=== PATIENT | male | born 1950 | race Caucasian/White ===

== ENCOUNTER 2022-12-05 10:50 | Inpatient (IN) ==
--- NOTE | 2022-11-17 11:47 | PAT Medication Instructions ---
Medication Instructions Date of Service November 17, 2022 Home Medications aspirin 81 mg capsule 81 mg PO QAM atorvastatin 20 mg tablet 20 mg PO HS gabapentin 300 mg capsule 300 mg PO TID lisinopril 20 mg tablet 20 mg PO QAM meloxicam 7.5 mg tablet 7.5 mg PO BID multivitamin 1 tab PO QAM pantoprazole 40 mg tablet,delayed release 40 mg PO QAM psyllium husk 0.52 gram capsule 0.52 g PO QAM ASK your surgeon for instructions meloxicam 7.5 mg tablet 7.5 mg PO BID DO NOT take the morning of surgery lisinopril 20 mg tablet 20 mg PO QAM multivitamin 1 tab PO QAM psyllium husk 0.52 gram capsule 0.52 g PO QAM Take morning of surgery With a small sip of water, OTHERWISE NOTHING TO EAT OR DRINK AFTER MIDNIGHT: aspirin 81 mg capsule 81 mg PO QAM (unless surgeon directed otherwise) gabapentin 300 mg capsule 300 mg PO TID pantoprazole 40 mg tablet,delayed release 40 mg PO QAM Take evening before surgery atorvastatin 20 mg tablet 20 mg PO HS gabapentin 300 mg capsule 300 mg PO TID Other Notes If you have any questions please call us at [phone] or [phone] or [phone] or [phone]
--- NOTE | 2022-11-21 13:33 | Anesthesiology Consultation ---
Date of Service November 21, 2022 Assessment & Plan (1) Encounter for pre-operative examination: - 11/24/22 [facility] PCP pre-op evaluation. Chart Review Chart Review: Pending: Refer to Additional Notes / Consult section and Patient seen in Pre Admission Testing Teaching & Discussion Pre-Anesthesia Teaching/Discussion Notes: Instructed NPO after midnight before surgery, except medications with 15 cc of water. Medication instructions provided according to the PAT guidelines. History Surgery Operation Date: 12/05/22 10:05 Proposed Procedures p L3-L5 Decompression and Fusion, Spinal Cord Monitoring - Linden Morales DO Height/Weight Height: 6 ft Weight: 133.4 kg Allergies Allergy/AdvReac Type Severity Reaction Status Date / Time shellfish derived Allergy Severe Anaphylaxis Verified 11/14/22 11:41 Medications Home Medications Medication Instructions Recorded Confirmed Last Taken aspirin 81 mg capsule 81 mg PO QAM 11/14/22 11/14/22 Unknown atorvastatin 20 mg tablet 20 mg PO HS 11/14/22 11/14/22 Unknown gabapentin 300 mg capsule 300 mg PO TID 11/14/22 11/14/22 Unknown lisinopril 20 mg tablet 20 mg PO QAM 11/14/22 11/14/22 Unknown meloxicam 7.5 mg tablet 7.5 mg PO BID 11/14/22 11/14/22 Unknown multivitamin 1 tab PO QAM 11/14/22 11/14/22 Unknown pantoprazole 40 mg tablet,delayed 40 mg PO QAM 11/14/22 11/14/22 Unknown release psyllium husk 0.52 gram capsule 0.52 g PO QAM 11/14/22 11/14/22 Unknown Additional Notes: Pt was instructed to check with prescriber and surgeon if aspirin is to be continued or held if both providers are in agreement. This was corrected on provided medication instructions. Patient verbalized full understanding and agreement, denied questions or concerns. Past Medical History Medical History (Updated 11/21/22 @ 13:55 by Fern Powell PA-C) Asthma childhood, controlled and stable per pt CLL (chronic lymphocytic leukemia) annual monitoring per [facility] heme/onc GERD (gastroesophageal reflux disease) controlled, stable per pt History of colon cancer 2013-s/p bowel resection and "light" chemo HTN (hypertension) controlled, stable per pt; white coat HTN Hyperlipidemia Slow to wake up after anesthesia denies extended intubation or re-intubation Patient denies h/o stroke, seizures, heart attack, heart failure, DM, blood clots or blood transfusions. Exercise / Class Metabolic Activity II 4-5 Yardwork/Stairs/Walk up hill (denies chest discomfort or shortness of breath with 1 FOS) Past Family History Family History Other No family history of adverse response to anesthesia Past Surgical History Surgical History (Updated 11/21/22 @ 13:29 by Fern Powell PA-C) History of bilateral knee replacement History of bowel resection History of esophagogastroduodenoscopy (EGD) History of mandibular surgery jaw fracture, from traumatic injury-extensive wiring per pt, 1980s Hx of colonoscopy Past Anesthesia History Difficult Airway (jaw trauma/surgery with hardware in place, good jaw opening) and Other (slow to wake, denies extended unanticipated intubation or re- intubation; mother slow to wake) History of PONV No Hx of PONV and No Hx of Motion Sickness Social History Smoking Status: Former smoker tobacco type: cigarettes Smoking cigarettes per day: ~quit 40 yrs ago Do You Dip or Chew Tobacco: No Hx Alcohol Use: No Hx Substance Use: No substance use type: does not use Review of Systems Snoring, denies witnessed apneas. Patient denies chest pain, shortness of breath, dyspnea on exertion, fever, chills, cough, wheezing, or palpitations. Physical Exam Vital Signs Vitals BP 147/97 P 71 TEMP 97.9 SP02 95% on RA RESP 17 Physical Patient resting comfortably in chair in NAD, alert and oriented, responding appropriately throughout visit Full cervical extension range of motion without pain TMD 3.5 finger breadths Mallampati Score 2 Dentition: full upper plate and partial lower plate, both removable; denies chipped or loose teeth, caps/crowns, implants or bridges Lungs: normal respiratory effort. Good air movement, clear throughout to auscultation, no adventitious breath sounds Cardiac: regular rate and rhythm, no murmurs noted Carotid arteries: negative bruit bilat Lab Results Anesthesia Preop Results Results Anesthesia Widget: WBC 7.27 K/ul (4.8-10.8) 11/21/22 Hgb 14.5 g/dl (14.0-18.0) 11/21/22 Hct 41.1 % (42.0-52.0) L 11/21/22 Plt 200 K/uL (130-400) 11/21/22 Na 137 mmol/L (136-145) 11/21/22 K 4.6 mmol/L (3.5-5.1) 11/21/22 Cl 107 mmol/L (98-107) 11/21/22 CO2 26 mmol/L (21-32) 11/21/22 BUN 16 mg/dl (6-23) 11/21/22 Creat 1.17 mg/dl (0.6-1.4) 11/21/22 Glucose Level 90 mg/dl (70-99(Fasting)) 11/21/22 PT 11.1 Seconds (9.0-12.0) 11/21/22 PTT 27.8 Seconds (21.0-31.0) 11/21/22 INR 1.0 (0.9-1.1) 11/21/22 Urine Color Yellow 11/21/22 Urine Appearance Clear (Clear) 11/21/22 Urine pH 6.5 (4.5-7.5) 11/21/22 Urine Specific [place] 1.009 (1.000-1.030) 11/21/22 Urine Protein Negative (Negative) 11/21/22 Urine Glucose (UA) Negative (Negative) 11/21/22 Urine Ketones Negative (Negative) 11/21/22 Urine Blood Negative (Negative) 11/21/22 Urine Nitrite Negative (Negative) 11/21/22 Urine Bilirubin Negative (Negative) 11/21/22 Urine Urobilinogen Negative (Negative) 11/21/22 Urine Leukocyte Esterase Negative (Negative) 11/21/22 Blood Type O Positive 11/21/22 Antibody Screen NEGATIVE 11/21/22 Testing Electrocardiogram Date: 11/21/22 NSR, rate 68 bpm Chest X-Ray Date: 11/21/22 Mild cardiomegaly with no active disease in the chest.
[~2022-12-05 10:50] MED LIST: ACETAMINOPHEN 500 MG TAB PO SCH; CeleBREX 200 MG CAP PO SCH; GABAPENTIN 300 MG CAP PO SCH; LR 500ML BOLUS, THEN 15ML/HR IV SCH; LR 60ML/HR IV SCH
--- NOTE | 2022-12-05 12:07 | History & Physical Bridge Note ---
Date of Service December 05, 2022 History & Physical Bridge Note I have examined the patient, reviewed the History & Physical and in the interval since the performance of the History & Physical I have noted the following changes of clinical significance: no changes noted
--- NOTE | 2022-12-05 12:08 | History & Physical Report ---
Date of Service December 05, 2022 Assessment & Plan (1) Neurogenic claudication due to lumbar spinal stenosis: Plan: L3 L5 decompression and fusion History of Present Illness Chief Complaint: Back and leg pain Primary Care Provider: Kwasi Jones PA-C This is a 72-year-old male who presents with chronic persistent back and leg pain after failing course of nonoperative care is here for surgical invention. Allergies Allergy/AdvReac Type Severity Reaction Status Date / Time shellfish derived Allergy Severe Anaphylaxis Verified 12/05/22 11:37 Home Medications Medication Instructions Recorded Confirmed Type aspirin 81 mg capsule 81 mg PO QAM 11/14/22 12/05/22 History atorvastatin 20 mg tablet 20 mg PO DAILY 11/14/22 12/05/22 History gabapentin 300 mg capsule 300 mg PO TID 11/14/22 12/05/22 History lisinopril 20 mg tablet 20 mg PO QAM 11/14/22 12/05/22 History meloxicam 7.5 mg tablet 7.5 mg PO BID 11/14/22 12/05/22 History multivitamin 1 tab PO QAM 11/14/22 12/05/22 History pantoprazole 40 mg tablet,delayed 40 mg PO QAM 11/14/22 12/05/22 History release psyllium husk 0.52 gram capsule 0.52 g PO QAM 11/14/22 12/05/22 History Past Med/Surg History Medical History (Updated 12/05/22 @ 12:08 by Linden Morales DO) Asthma childhood, controlled and stable per pt CLL (chronic lymphocytic leukemia) annual monitoring per [facility] heme/onc GERD (gastroesophageal reflux disease) controlled, stable per pt History of colon cancer 2014-s/p bowel resection and "light" chemo HTN (hypertension) controlled, stable per pt; white coat HTN Hyperlipidemia Slow to wake up after anesthesia denies extended intubation or re-intubation Surgical History History of bilateral knee replacement History of bowel resection History of esophagogastroduodenoscopy (EGD) History of mandibular surgery jaw fracture, from traumatic injury-extensive wiring per pt, 1980s Hx of colonoscopy Family History Other No family history of adverse response to anesthesia Social History Smoking Status: Former smoker Cigarettes Per Day: ~quit 40 yrs ago; Second Hand Exposure: No; Do You Dip or Chew Tobacco: No; Tobacco Cessation Education Requested by Patient: No Hx Alcohol Use: No Hx Substance Use: No Preferred Language: [place] Citizen Communication Ability: Effective Teaching Supervisor Required: No Beliefs That Will Affect Care: None Current Living Situation: Spouse Other Information That Helps Us Care for You: No Feels Safe at Home: Yes Safety Concerns: Feels Safe At This Time Assistive Devices: Denture - Upper, Denture - Lower and Glasses Physical Exam Physical Exam: Patient is alert and oriented Heart regular rhythm Lungs clear Results & Data Results & Data Vital Signs (Past 12 Hours) Vital Signs Temp Pulse Resp BP Pulse Ox O2 Del Method 12/05/22 11:41 36.9 C 94 H 20 158/88 H 95 Room Air
[2022-12-05] MEDS ORDERED: ePHEDrine sulfate 50 MG/ML AMP IV PRN (13:11)
[2022-12-05] MEDS ORDERED: ONDANSETRON INJ 2 MG/ML 2 ML VIAL IV PRN ×2 (13:11→17:52)
[2022-12-05] MEDS ORDERED: ATROPINE SULFATE 0.1 MG/ML 10ML SYR IV PRN (13:11)
[2022-12-05] MEDS ORDERED: fentaNYL citrate PF 100 MCG/2 ML VIAL ONE (13:47)
[2022-12-05] MEDS ORDERED: KETAMINE 50 MG/5 ML SYRINGE ONE (13:49)
[2022-12-05] MEDS ORDERED: ceFAZolin 330 MG/ML 1 GM VIAL ONE (13:51)
[2022-12-05] MEDS ORDERED: BUPIVACAINE/EPINEPHRINE 0.25% 1:200,000 30 ML VIAL ONE (13:51)
[2022-12-05] MEDS ORDERED: HYDROmorphone INJ 2 MG/ML SYR/VIAL ONE (14:40)
[2022-12-05] MEDS ORDERED: ROCURONIUM BROMIDE 10 MG/ML 5 ML VIAL IV ONE (14:51)
[2022-12-05] MEDS ORDERED: ONDANSETRON INJ 2 MG/ML 2 ML VIAL ONE (14:51)
[2022-12-05] MEDS ORDERED: LARYING-O-JET KIT (LTA) ONE (14:51)
[2022-12-05] MEDS ORDERED: PHENYLEPHRINE 100MCG/ML 5ML SYR ONE (14:51)
[2022-12-05] MEDS ORDERED: ePHEDrine sulfate 50 MG/ML SYR ONE (14:51)
[2022-12-05] MEDS ORDERED: LIDOCAINE 2% 2 ML VIAL/AMP(20MG/ML) INFIL ONE (14:51)
[2022-12-05] MEDS ORDERED: PROPOFOL IV EMULSION 10 MG/ML 20 ML VIAL IV ONE (14:51)
[2022-12-05] MEDS ORDERED: DEXAMETHASONE SOD INJ 4 MG/ML VIAL ONE (14:51)
[2022-12-05] MEDS ORDERED: FLOSEAL HEMOSTATIC MATRIX 10ML TOP ONE (15:10)
[2022-12-05] MEDS ORDERED: SUGAMMADEX SODIUM 200 MG/2 ML VIAL IV ONE (15:57)
--- NOTE | 2022-12-05 16:05 | Operative Report ---
Post Operative Report Pre & Post Diagnosis Operation Date: 12/05/22 12:35 Pre-Op Diagnosis: Spinal Stenosis, Lumbar Region with Neurogenic Cla Morbid obesity Post-Op Diagnosis: Same I identified the patient and participated in the time-out.: Yes Procedure Operation Date: 12/05/22 12:35 Actual Procedures #1 lumbar decompression bilateral meniscectomies and foraminotomies L2-L3 L3-L4. #2 posterior spinal fusion L3-L4. #3 please posterior instrumentation L3-L4. #4 interbody fusion L3-L4. #5 please just prior 12 x 26 mm at L3-L4. #6 placement likely harvested most as autograft posterior gutters. #7 placement in physical dysfunctional mass graft to posterior gutters and I factor in the body space. Surgeon Linden Morales, DO Fat Purification Worker Dedrick Garcia Estimated Blood Loss 400 Findings See Below The patient is 6 feet tall weighing over 133 kg with BMI of 40. The patient's body habitus did contribute to significant technical difficulty requiring her to place retractors longer instruments in order to perform this procedure. This at least 50% increased operative time. Specimens none Indications This is a 72-year-old male who presents above-mentioned diagnosis and failed course of nonoperative care is here for surgical invention. Description of Procedure Patient admitted with identified informed consent obtained. Patient was then taken operative suite underwent ablation placed in a prone position on the Kyle table topicals and vein. A bony prominences well-padded I suspected to internal/external possibly spinal. The spine #is prepped draped in a sterile fashion. Sharp dissection with the assistance of Bovie cautery form down to exposing the lamina and transverse processes of L3-L4. We will call a cephalad fashion complete laminectomy of L3 partially met 2 was performed including bilateral medial facetectomies and foraminotomies addressing severe spinal stenosis. Pedicle screws were then placed in L3 and L4 bilaterally with assistance of fluoroscopy and appropriate size jana placed. Bilateral transforaminal approach on the left leg discectomy L3-L4 was performed endplates guarded to subcortical bleeding bone and a 12 x 26 mm prior cage with I factor X position. The rods and locked in final position bilaterally. The transverse processes of L3-L4 burred to support over the bone. Infuse collagen sponge combined with master graft Was placed in the posterior gutters. 15 round CHASIDY inserted. The incision was then closed with 1 Vicryl fascia 2-0 Vicryl subcutaneously and 4 Monocryl for final skin closure. Steri-Strips were displaced. Patient with intake to PACU in stable condition. Please note Dedrick Garcia was present that entire procedure on the patient position complex portion of the surgery and final skin closure. Spinal cord monitoring was utilized procedure and no changes noted. I attest to the content of the Intraoperative Record and any orders documented therein. Any exceptions are noted below.
--- NOTE | 2022-12-05 16:44 | Fluoroscopy Report ---
FL lumbar spine 2-3V CLINICAL HISTORY: L3-L4 DECOMPRESSION AND FUSION TECHNIQUE: 2 views were obtained with the C-arm in the OR with the above procedure. Total fluoroscopy time was 20 seconds. Radiation dose was 16.78 mGy. Comparison: None available at the time of this dictation. FINDINGS/IMPRESSION: Intraoperative images were obtained of decompression and fusion at L3-L4. Please correlate with intraoperative fluoroscopy and operative report. ACT 112: Negative or not required by law. Electronically signed by: Paul Ritchie M.D. 12/05/2022 4:42 PM
[2022-12-05] MEDS: fentaNYL citrate PF 100 MCG/2 ML VIAL IV PRN ×2 (16:56→17:01)
--- NOTE | 2022-12-05 17:07 | Anesthesiology Progress Note ---
Date of Service December 05, 2022 Anesthesia Post Procedure Vital Signs Vital Signs: Temp Pulse Pulse Resp BP Pulse Ox O2 Del Method 12/05/22 17:00 81 18 163/88 H 96 Oxymask 12/05/22 16:50 79 12 150/102 H 96 Oxymask 12/05/22 16:40 72 12 148/96 H 97 Oxymask 12/05/22 16:30 82 13 161/99 H 92 Room Air 12/05/22 16:20 36 C L 80 16 151/83 H 94 Room Air 12/05/22 11:41 36.9 C 94 H 20 158/88 H 95 Room Air O2 Flow Rate 12/05/22 17:00 3 12/05/22 16:50 3 12/05/22 16:40 3 12/05/22 16:30 12/05/22 16:20 12/05/22 11:41 Pain Intensity Bilateral Lower Back: Pain Intensity: 5 Transfer of Care Handoff Completed per policy Notes Mental Status: alert / awake / arousable and participated in evaluation Patient Amnestic to Procedure: Yes Nausea / Vomiting: adequately controlled Pain: adequately controlled Airway Patency, RR, SpO2: stable & adequate BP & HR: stable & adequate Hydration State: stable & adequate Anesthetic Complications: no major complications apparent and Pt Satisfied with anesthetic care
[2022-12-05] MEDS ORDERED: LORazepam 0.5 MG TAB PO PRN (17:52)
[2022-12-05] MEDS ORDERED: ACETAMINOPHEN 500 MG TAB PO PRN (17:52)
[2022-12-05] MEDS ORDERED: HYDROmorphone INJ 1 MG/ML SYRINGE IV PRN (17:52)
[2022-12-05] MEDS ORDERED: hydrOXYzine HCl 25 MG TAB PO PRN (17:52)
[2022-12-05] MEDS ORDERED: METOCLOPRAMIDE HCL INJ 5 MG/ML 2 ML VIAL IV PRN (17:52)
[2022-12-05] MEDS ORDERED: FAMOTIDINE 20 MG TAB PO PRN (17:52)
[2022-12-05] MEDS ORDERED: ALUMINUM/MAGNESIUM SUSP 30 ML UDC PO PRN (17:52)
[2022-12-05] MEDS ORDERED: ACETAMINOPHEN 1,000 MG/100 ML VIAL IV PRN (17:52)
[2022-12-05] MEDS ORDERED: NALOXONE HCL 0.4 MG/1 ML VIAL/CARP IV PRN (17:52)
[2022-12-05] MEDS ORDERED: HYDROmorphone INJ 0.5 MG/0.5 ML SYR IV PRN (17:52)
[2022-12-05] MEDS ORDERED: oxyCODONE HCL IR 5 MG TAB (IMMEDIATE RELEASE) PO PRN (17:52)
[2022-12-05] MEDS ORDERED: DO NOT ADMINISTER PNEUMOCOCCAL VACCINE PRN (17:52)
[2022-12-05] MEDS ORDERED: SOD PHOSPHATE/SOD BIPHOSPHATE ENEMA 132 ML BTL PR PRN (17:52)
[2022-12-05] MEDS ORDERED: ONDANSETRON 4 MG OD TAB PO PRN (17:52)
[2022-12-05] MEDS ORDERED: MAGNESIUM HYDROXIDE SUSP 30 ML UDC PO PRN (17:52)
[2022-12-05] MEDS ORDERED: bisacodyL 10 MG SUPP PR PRN (17:52)
[2022-12-05] MEDS ORDERED: PROMETHAZINE HCL 12.5 MG in SODIUM CHLORIDE 0.9% 50 ML IV PRN (17:52)
[2022-12-05] MEDS ORDERED: DO NOT ADMINISTER FLU VACCINE PRN (17:52)
[2022-12-05] MEDS ORDERED: LORazepam 2 MG/1 ML VIAL IV PRN (17:52)
[2022-12-05] MEDS ORDERED: diphenhydrAMINE Capsule 25 MG CAP PO PRN (17:52)
[2022-12-05] MEDS: LACTATED RINGER'S 1,000 ML IV SCH (18:16)
--- NOTE | 2022-12-05 19:06 | Consultation ---
Date of Consultation December 05, 2022 Assessment & Plan (1) Neurogenic claudication due to lumbar spinal stenosis: (2) HTN (hypertension): (3) Hyperlipidemia: (4) CLL (chronic lymphocytic leukemia): Plan This is a 72-year-old male who has a significant past medical history of HTN, HLD, CLL, GERD, history of sigmoid colon CA status postresection who presents for elective lumbar procedure by Dr. Morales. Neurogenic claudication due to lumbar spinal stenosis Status post L3-L4 lumbar decompression fusion EBL 400 mL Pain/wound management per orthopedics Activity and therapy as per orthopedics Monitor hemoglobin, preop 14.5 Hypertension Chronic, stable Continue lisinopril Hyperlipidemia Chronic, stable Continue statin CLL History of sigmoid cancer status postresection in 2012 Currently undergoing observation Follows with [facility] oncology DVT prophylaxis: SCDs Full code Dispo: Per primary PCP: Kwasi Jones Thank you for this consultation. We will follow the patient with you during their hospital stay. You can reach a member of the [facility] Hospitalist Team 03/11 via hospitalist role on tiger text. Patient was seen and examined in collaboration with Dr. Moctezuma, please see addendum History obtained from patient and at bedside. Medical reconciliation completed at bedside. Outpatient chart reviewed epic reviewed. All preop lab oratories were independently reviewed by myself as well as preop chest x-ray imaging and postoperative lumbar surgery imaging. Supervising Physician Co-Signing Physician Notes Pt seen and examined by myself, Cherrie Moctezuma MD on the day of service. Care was coordinated with Jennifer Young PA-C. Please refer to her note for additional information. In short, 72yo M s/p lumbar decompression surgery. States nauseous after the procedure but otherwise doing well. Abdomen soft, nontender. Zofran and phenergan prn. Otherwise as above. History of Present Illness Requesting Physician: Dr. Morales Reason for Consultation: Postop medical management Attending Physician: Linden Morales DO History of Present Illness This is a 72-year-old male who has a significant past medical history of HTN, HLD, CLL, GERD, history of sigmoid colon CA status postresection who presents for elective lumbar procedure by Dr. Morales. He underwent L3-L4 lumbar decompression fusion and tolerated the procedure well. He is having postop nausea that is so far been unresponsive to Zofran. He denies any abdominal pain, fever, chills, sweats, lightheadedness, dizziness, chest pain, shortness of breath or URI symptoms. He is currently on oxygen therapy and does not wear this at home. He has been trying to sip some water but has not been able to keep it down. He states he has had difficulty with anesthesia in the past causing nausea. His is at bedside who also helps elicit history and confirms med reconciliation. He does have prior history of sigmoid colon cancer status postresection in 2012. He also has history of CLL currently undergoing monitoring and maintenance therapy and follows [id number]on[facility].In regards to his hypertension it is controlled with oral outpatient regimen of lisinopril. Allergies Allergy/AdvReac Type Severity Reaction Status Date / Time shellfish derived Allergy Severe Anaphylaxis Verified 12/05/22 11:37 Home Medications Medication Instructions Recorded Confirmed Type aspirin 81 mg capsule 81 mg PO QAM 11/14/22 12/05/22 History atorvastatin 20 mg tablet 20 mg PO DAILY 11/14/22 12/05/22 History gabapentin 300 mg capsule 300 mg PO TID 11/14/22 12/05/22 History lisinopril 20 mg tablet 20 mg PO QAM 11/14/22 12/05/22 History meloxicam 7.5 mg tablet 7.5 mg PO BID 11/14/22 12/05/22 History multivitamin 1 tab PO QAM 11/14/22 12/05/22 History pantoprazole 40 mg tablet,delayed 40 mg PO QAM 11/14/22 12/05/22 History release psyllium husk 0.52 gram capsule 0.52 g PO QAM 11/14/22 12/05/22 History oxycodone 5 mg tablet 5 mg PO Q6H PRN pain #30 tabs 12/05/22 Rx tramadol 50 mg tablet 50 mg PO Q6H PRN pain, moderate 12/05/22 Rx #30 tabs Patient History Medical History (Updated 12/05/22 @ 20:05 by Jennifer Young PA-C) Asthma childhood, controlled and stable per pt CLL (chronic lymphocytic leukemia) annual monitoring per [facility] heme/onc GERD (gastroesophageal reflux disease) controlled, stable per pt History of colon cancer 2014-s/p bowel resection and "light" chemo HTN (hypertension) controlled, stable per pt; white coat HTN Hyperlipidemia Slow to wake up after anesthesia denies extended intubation or re-intubation Surgical History History of bilateral knee replacement History of bowel resection History of esophagogastroduodenoscopy (EGD) History of mandibular surgery jaw fracture, from traumatic injury-extensive wiring per pt, 1980s Hx of colonoscopy Family History Other No family history of adverse response to anesthesia Social History Smoking Status: Former smoker Cigarettes Per Day: ~quit 40 yrs ago; Second Hand Exposure: No; Do You Dip or Chew Tobacco: No; Tobacco Cessation Education Requested by Patient: No Hx Alcohol Use: No Hx Substance Use: No Preferred Language: Bahraini Communication Ability: Effective Slider Assembler Required: No Beliefs That Will Affect Care: None Current Living Situation: Spouse Other Information That Helps Us Care for You: No Feels Safe at Home: Yes Safety Concerns: Feels Safe At This Time Assistive Devices: Denture - Upper, Denture - Lower and Glasses Review of Systems Review of Systems: All systems reviewed & are unremarkable except as noted in HPI & below Physical Exam Physical Exam: Constitutional: WD/WN, obese, M, vitals as above, NAD, sitting up in bed, pleasant, conversing easily Head: Normocephalic, Atraumatic Eyes: PERRL, conjunctivae normal, anicteric sclerae ENMT: external ear and nose normal, oropharynx normal Neck: trachea midline, no thyromegaly normal visual inspection Respiratory: normal respiratory effort, lungs clear to auscultation, no wheeze, rales, rhonchi. Normal insp/exp effort, no accessory muscle use Cardiovascular: RRR, no murmur, no edema Vessels: no JVD or carotid bruit Chest: normal inspection of chest Abdomen: normal bowel sounds, soft, nontender, no hepatosplenomegaly Musculoskeletal: no cyanosis or clubbing, lumbar dressing CDI with CHASIDY drain serosang drainage, AROM x 4 Skin: no rashes, warm and dry normal turgor Neurologic: PERRL, EOMI, accommodation nl, no face palsy, no dysarthria CN's II-XI intact bilaterally and moves all extremities Psychiatric: A+Ox3, euthymic affect : deferred +Biliary emesis noted in bag at bedside Results & Data Vital Signs (Past 12 Hours) Vital Signs Temp Pulse Pulse Resp BP Pulse Ox O2 Del Method 12/05/22 18:11 36.3 C L 87 22 152/96 H 97 Nasal Cannula 12/05/22 17:57 36.3 C L 77 16 141/87 H 98 Nasal Cannula 12/05/22 17:20 36.3 C L 78 18 155/81 H 97 Oxymask 12/05/22 17:10 81 10 L 148/88 H 98 Oxymask 12/05/22 17:00 81 18 163/88 H 96 Oxymask 12/05/22 16:50 79 12 150/102 H 96 Oxymask 12/05/22 16:40 72 12 148/96 H 97 Oxymask 12/05/22 16:30 82 13 161/99 H 92 Room Air 12/05/22 16:20 36 C L 80 16 151/83 H 94 Room Air 12/05/22 11:41 36.9 C 94 H 20 158/88 H 95 Room Air O2 Flow Rate 12/05/22 18:11 2 12/05/22 17:57 2 12/05/22 17:20 3 12/05/22 17:10 3 12/05/22 17:00 3 12/05/22 16:50 3 12/05/22 16:40 3 12/05/22 16:30 12/05/22 16:20 12/05/22 11:41 Laboratory Results Preop lab work done on 11/21/2022 revealed hemoglobin 14.5 hematocrit 41.1, WBC 7.27, platelet 200, sodium 137, K4.6, BUN 16, creatinine 1.17. Urinalysis negat jesus. Diagnostic Findings Lumbar Spine X-Ray 12/05/22 12:35 FL lumbar spine 2-3V CLINICAL HISTORY: L3-L4 DECOMPRESSION AND FUSION TECHNIQUE: 2 views were obtained with the C-arm in the OR with the above procedure. Total fluoroscopy time was 20 seconds. Radiation dose was 16.78 mGy. Comparison: None available at the time of this dictation. FINDINGS/IMPRESSION: Intraoperative images were obtained of decompression and fusion at L3-L4. Please correlate with intraoperative fluoroscopy and operative report. ACT 112: Negative or not required by law. Electronically signed by: Paul Ritchie M.D. 12/05/2022 4:42 PM Medications Administered Current Inpatient Medications Acetaminophen (Acetaminophen 500 Mg Tab) 1,000 mg PO Q8H PRN PRN Reason: MILD Pain Scale 1,2,3 & Pre PT Stop: 01/04/23 17:51 Al Hydrox/Mg Hydrox/Simethicone (Aluminum/Magnesium Susp 30 Ml Udc) 30 ml PO Q6H PRN PRN Reason: Dyspepsia Stop: 01/04/23 17:51 Aspirin (Aspirin 81 Mg Ectab) 81 mg PO QAM [facility] Stop: 01/05/23 08:59 Atorvastatin Calcium (Atorvastatin 20 Mg Tab) 20 mg PO DAILY [facility] Stop: 01/05/23 08:59 Bisacodyl (Bisacodyl 10 Mg Supp) 10 mg UT DAILY PRN PRN Reason: Constipation Stop: 01/04/23 17:51 Diphenhydramine HCl (Diphenhydramine Capsule 25 Mg Cap) 25 mg PO Q6H PRN PRN Reason: Allergic Rhinitis/Insomnia Stop: 01/04/23 17:51 Famotidine (Famotidine 20 Mg Tab) 20 mg PO Q12H PRN PRN Reason: Dyspepsia Stop: 01/04/23 17:51 Gabapentin (Gabapentin 300 Mg Cap) 300 mg PO TID [facility] Stop: 01/04/23 20:59 Hydromorphone HCl (Hydromorphone Inj 0.5 Mg/0.5 Ml Syr) 0.5 mg IV Q3H PRN PRN Reason: MODERATE Pain (Scale 4,5,6) & Pre PT Stop: 12/19/22 17:51 Hydromorphone HCl (Hydromorphone Inj 1 Mg/Ml Syringe) 1 mg IV Q3H PRN PRN Reason: SEVERE Pain (Scale 7,8,9,10) Stop: 12/19/22 17:51 Last Admin: 12/05/22 18:15 Dose: 1 mg Hydroxyzine HCl (Hydroxyzine Hcl 25 Mg Tab) 25 mg PO Q8H PRN PRN Reason: Anxiety Stop: 01/04/23 17:51 Lactated Ringer's (Lr) 1,000 mls @ 60 mls/hr IV .[id number] [facility] Stop: 12/05/22 22:39 Last Admin: 12/05/22 12:08 Dose: Not Given Lactated Ringer's (Lr) 1,000 mls @ 150 mls/hr IV .Q6H40M EFRAIN Stop: 01/04/23 17:51 Last Admin: 12/05/22 18:16 Dose: 150 mls/hr Promethazine HCl 12.5 mg/ (Sodium Chloride) 50.5 mls @ 202 mls/hr IV Q6H PRN PRN Reason: Nausea &/or Vomiting Stop: 01/04/23 17:51 Last Infusion: 12/05/22 19:39 Dose: Infused Acetaminophen (Ofirmev) 1,000 mg in 100 mls @ 400 mls/hr IV Q8H PRN PRN Reason: Pain Rating 1-3 & Pre PT Stop: 12/06/22 17:53 Cefazolin Sodium (Ancef 2000mg) 2,000 mg in 15 mls @ 3.75 mls/min IV Q8H [facility]; Protocol Stop: 12/06/22 06:18 Dexamethasone 6 mg/ Syringe 1.5 mls @ 1 mls/min IV DAILY [facility] Stop: 12/08/22 09:02 Influenza Virus Vaccine Quadrival (Do Not Administer Flu Vaccine) 1 each N/A PRN PRN PRN Reason: Notification Stop: 01/04/23 17:51 Lisinopril (Lisinopril 20 Mg Tab) 20 mg PO QAM [facility] Stop: 01/05/23 08:59 Lorazepam (Lorazepam 0.5 Mg Tab) 0.5 mg PO Q8H PRN PRN Reason: Sedation/Anxiety Stop: 01/04/23 17:51 Lorazepam (Lorazepam 2 Mg/1 Ml Vial) 0.5 mg IV Q8H PRN PRN Reason: Sedation/Anxiety Stop: 01/04/23 17:51 Magnesium Hydroxide (Magnesium Hydroxide Susp 30 Ml Udc) 30 ml PO Q24H PRN PRN Reason: Constipation Stop: 01/04/23 17:51 Metoclopramide HCl (Metoclopramide Hcl Inj 5 Mg/Ml 2 Ml Vial) 10 mg IV Q6H PRN PRN Reason: Nausea &/or Vomiting Stop: 01/04/23 17:51 Multivitamins (Multivitamin Tab) 1 tab PO QAM [facility] Stop: 01/05/23 08:59 Naloxone HCl (Naloxone Hcl 0.4 Mg/1 Ml Vial/Carp) 0.1 mg IV Q5M PRN PRN Reason: Oversedation/Resp depression Stop: 01/04/23 17:51 Ondansetron HCl (Ondansetron Inj 2 Mg/Ml 2 Ml Vial) 4 mg IV Q6H PRN PRN Reason: Nausea &/or Vomiting Stop: 01/04/23 17:51 Ondansetron HCl (Ondansetron 4 Mg Od Tab) 4 mg PO Q6H PRN PRN Reason: Nausea Stop: 01/04/23 17:51 Last Admin: 12/05/22 18:40 Dose: 4 mg Oxycodone HCl (Oxycodone Hcl Ir 5 Mg Tab (Immediate Release)) 5 - 10 mg PO Q4H PRN PRN Reason: Pain & Pre PT Stop: 12/19/22 17:51 Pantoprazole Sodium (Pantoprazole 40 Mg Tab) 40 mg PO QAM [facility] Stop: 01/05/23 08:59 Pneumococcal Polyvalent Vaccine (Do Not Administer Pneumococcal Vaccine) 1 each N/A PRN PRN PRN Reason: Notification Stop: 01/04/23 17:51 Polyethylene Glycol (Polyethylene (Miralax) 17 Gm Pack) 17 gm PO Q6 [facility] Stop: 01/05/23 05:59 Senna/Docusate Sodium (Docusate Sodium/Senna 50/8.6mg Tab) 2 tab PO HS [facility] Stop: 01/04/23 20:59 Sodium Biphosphate/Sodium Phosphate (Sod Phosphate/Sod Biphosphate Enema 132 Ml Btl) 132 ml UT ONE PRN PRN Reason: Constipation Stop: 01/04/23 17:51 Tramadol HCl (Tramadol Hcl 50 Mg Tablet) 50 - 100 mg PO Q4H PRN PRN Reason: Moderate-Severe pain & Pre PT Stop: 01/04/23 17:51 ECG Additional Comments: Preop done on November 21, 2022 revealed normal sinus rhythm with ventricular rate of 68 bpm, normal EKG, no ST or T wave changes. Normal UT and QTc interval.
[2022-12-05] MEDS: DOCUSATE SODIUM/SENNA 50/8.6MG TAB PO SCH (21:00)
[2022-12-05] MEDS: ceFAZolin 2000MG 2,000 MG/15 ML SYR IV SCH (21:01)
[2022-12-05] MEDS: GABAPENTIN 300 MG CAP PO SCH (21:01)
[2022-12-06] MEDS: LACTATED RINGER'S 1,000 ML IV SCH (01:10)
[2022-12-06] MEDS: POLYETHYLENE (MIRALAX) 17 GM PACK PO SCH ×4 (05:32→23:56)
[2022-12-06] MEDS: ceFAZolin 2000MG 2,000 MG/15 ML SYR IV SCH (05:32)
[2022-12-06 07:47] LABS: Basophils # (auto) 0.03 K/uL (0.00-0.20); Basophils % (auto) 0.2 %; Hemoglobin 13.2 g/dl (14.0-18.0); Immature Granulocytes # (auto) 0.09 K/uL (0.01-0.20); Immature Granulocytes % (auto) 0.6 %; Lymphocytes # (auto) 1.69 K/uL (1.20-3.40); Lymphocytes % (auto) 11.4 %; Mean Corpuscular Hemoglobin 34.2 pg (25.0-34.0); Mean Corpuscular Hgb Conc 35.7 g/dL (32.0-36.0); Mean Corpuscular Volume 95.9 fL (80.0-100.0); Mean Platelet Volume 9.1 fL (9.4-12.4); Monocytes # (auto) 1.02 K/uL (0.11-0.59); Monocytes % (auto) 6.9 %; Neutrophils # (auto) 11.93 K/uL (1.40-6.50); Neutrophils % (auto) 80.9 %; Platelet Count 196 K/uL (130-400); RDW Coefficient of Variation 12.2 % (11.5-14.5); RDW Standard Deviation 42.9 fL (36.4-46.3); Red Blood Count 3.86 M/uL (4.70-6.10); White Blood Count 14.76 K/ul (4.8-10.8)
[2022-12-06 08:18] LABS: BUN Creatinine Ratio 19.7 (10-20); Calcium 9.1 mg/dl (8.6-10.3); Creatinine Clr Calc Pharmacy 83.2 ml/min; Est GFR (African American) 72.8 ml/min; Est GFR (Non-African American) 62.8 ml/min; Potassium 4.7 mmol/L (3.5-5.1)
[2022-12-06] MEDS: traMADol HCL 50 MG TABLET PO PRN ×2 (08:28→14:04)
[2022-12-06] MEDS: ASPIRIN 81 MG ECTAB PO SCH (08:28)
[2022-12-06] MEDS: ATORVASTATIN 20 MG TAB PO SCH (08:29)
[2022-12-06] MEDS: dexAMETHasone 6 MG in SYRINGE 0 ML IV SCH (08:29)
[2022-12-06] MEDS: lisinopril 20 MG TAB PO SCH (08:29)
[2022-12-06] MEDS: PANTOprazole 40 MG TAB PO SCH (08:29)
[2022-12-06] MEDS: GABAPENTIN 300 MG CAP PO SCH ×3 (08:29→19:44)
[2022-12-06] MEDS: MULTIVITAMIN TAB PO SCH (08:29)
--- NOTE | 2022-12-06 10:55 | Orthopedic Progress Note ---
Date of Service December 06, 2022 Assessment & Plan (1) Neurogenic claudication due to lumbar spinal stenosis: Plan: At this time we will initiate physical therapy monitor his CHASIDY output of light discharge home the next few days. Admission and Anticipated Discharge Date Admission Date: December 05, 2022 Subjective Patient's back and leg symptoms are markedly improved. Is up and ambulating early this morning. Physical Exam Physical Exam: Patient is currently in bed. Comfortable. Is concerned to testing. Results & Data Vital Signs (Past 12 Hours) Vital Signs Temp Pulse Pulse Resp BP Pulse Ox O2 Del Method 12/06/22 07:55 36.5 C 81 16 136/88 95 Room Air 12/06/22 02:42 36.4 C L 90 18 132/84 93 Room Air 12/05/22 23:53 36.5 C 92 H 20 122/80 94 Room Air Queries Orthopedic Spine Obesity: Yes
[2022-12-06] MEDS: DOCUSATE SODIUM/SENNA 50/8.6MG TAB PO SCH (19:44)
--- NOTE | 2022-12-06 22:33 | Hospitalist Progress Note ---
Date of Service December 06, 2022 Assessment & Plan (1) Neurogenic claudication due to lumbar spinal stenosis: (2) HTN (hypertension): (3) Hyperlipidemia: (4) CLL (chronic lymphocytic leukemia): Plan This is a 72-year-old male who has a significant past medical history of HTN, HLD, CLL, GERD, history of sigmoid colon CA status postresection who presents for elective lumbar procedure by Dr. Morales. Neurogenic claudication due to lumbar spinal stenosis Status post L3-L4 lumbar decompression fusion EBL 400 mL Pain/wound management per orthopedics Activity and therapy as per orthopedics Monitor hemoglobin, preop 14.5 Hypertension Chronic, stable Continue lisinopril Hyperlipidemia Chronic, stable Continue statin CLL History of sigmoid cancer status postresection in 2012 Currently undergoing observation Follows with [facility] oncology DVT prophylaxis: SCDs Full code Dispo: Per primary PCP: Kwasi Jones Thank you for this consultation. We will follow the patient with you during their hospital stay. You can reach a member of the [facility] Hospitalist Team 03/11 via hospitalist role on tiger text. Admission and Anticipated Discharge Date Admission Date: December 05, 2022 Subjective Pt seen today. States N/V has resolved. No acute concerns. Review of Systems Review of Systems: All systems reviewed & are unremarkable except as noted in Subjective Physical Exam Physical Exam: General: Alert, oriented. No acute distress Skin: bandage noted on back Psych: Appropriate mood and affect HEENT: NC/AT CV: RRR, Normal s1, s2. No murmurs appreciated Resp: Breath sounds clear bilaterally, no increased effort of breathing. Abdomen: Soft, nontender Results & Data Results & Data Vital Signs (Past 12 Hours) Vital Signs Temp Pulse Pulse Resp BP Pulse Ox O2 Del Method 12/06/22 21:27 36.7 C 93 H 18 117/73 95 Room Air 12/06/22 16:40 37.1 C 94 H 18 121/77 94 Room Air
[2022-12-07] MEDS: POLYETHYLENE (MIRALAX) 17 GM PACK PO SCH ×3 (06:06→16:57)
[2022-12-07] MEDS: ATORVASTATIN 20 MG TAB PO SCH (08:38)
[2022-12-07] MEDS: ASPIRIN 81 MG ECTAB PO SCH (08:38)
[2022-12-07] MEDS: GABAPENTIN 300 MG CAP PO SCH ×3 (08:38→19:43)
[2022-12-07] MEDS: MULTIVITAMIN TAB PO SCH (08:39)
[2022-12-07] MEDS: dexAMETHasone 6 MG in SYRINGE 0 ML IV SCH (08:39)
[2022-12-07] MEDS: PANTOprazole 40 MG TAB PO SCH (08:39)
[2022-12-07] MEDS: traMADol HCL 50 MG TABLET PO PRN ×2 (08:39→19:43)
[2022-12-07] MEDS: lisinopril 20 MG TAB PO SCH (08:39)
--- NOTE | 2022-12-07 09:57 | Orthopedic Progress Note ---
Date of Service December 07, 2022 Assessment & Plan (1) Neurogenic claudication due to lumbar spinal stenosis: Plan: At this time we will continue physical therapy monitor CHASIDY output anticipate discharge home tomorrow. Admission and Anticipated Discharge Date Admission Date: December 05, 2022 Subjective Back pain controlled leg symptoms markedly improved Physical Exam Physical Exam: On exam patient is up and ambulating. He is comfortable. Distracted testing. Results & Data Vital Signs (Past 12 Hours) Vital Signs Temp Pulse Resp BP Pulse Ox O2 Del Method 12/07/22 07:24 36.8 C 80 16 140/85 96 Room Air Queries Orthopedic Spine Obesity: Yes
--- NOTE | 2022-12-07 19:31 | Hospitalist Progress Note ---
Date of Service December 07, 2022 Assessment & Plan (1) Neurogenic claudication due to lumbar spinal stenosis: (2) HTN (hypertension): (3) Hyperlipidemia: (4) CLL (chronic lymphocytic leukemia): Plan This is a 72-year-old male who has a significant past medical history of HTN, HLD, CLL, GERD, history of sigmoid colon CA status postresection who presents for elective lumbar procedure by Dr. Morales. Neurogenic claudication due to lumbar spinal stenosis Status post L3-L4 lumbar decompression fusion EBL 400 mL Pain/wound management per orthopedics Activity and therapy as per orthopedics Monitor hemoglobin, preop 14.5 Hypertension Chronic, stable Continue lisinopril Hyperlipidemia Chronic, stable Continue statin CLL History of sigmoid cancer status postresection in 2012 Currently undergoing observation Follows with [facility] oncology DVT prophylaxis: SCDs, aspirin Full code Dispo: Per primary PCP: Kwasi Jones Thank you for this consultation. We will follow the patient with you during their hospital stay. You can reach a member of the [facility] Hospitalist Team 03/11 via hospitalist role on tiger text. Admission and Anticipated Discharge Date Admission Date: December 05, 2022 Subjective States he is doing well. Denies back pain or leg symptoms. Denies chest pain, SOB. Review of Systems Review of Systems: All systems reviewed & are unremarkable except as noted in Subjective Physical Exam Physical Exam: General: Alert, oriented. No acute distress Psych: Appropriate mood and affect HEENT: NC/AT CV: RRR, Normal s1, s2. No murmurs appreciated Resp: Breath sounds clear bilaterally, no increased effort of breathing. Abdomen: Soft, nontender Results & Data Results & Data Vital Signs (Past 12 Hours) Vital Signs Temp Pulse Resp BP Pulse Ox O2 Del Method 12/07/22 15:16 36.9 C 85 16 115/74 94 Room Air 12/07/22 07:24 36.8 C 80 16 140/85 96 Room Air
[2022-12-07] MEDS: DOCUSATE SODIUM/SENNA 50/8.6MG TAB PO SCH (19:41)
[2022-12-07 20:34] LABS: Basophils # (auto) 0.02 K/uL (0.00-0.20); Basophils % (auto) 0.1 %; Eosinophils # (auto) 0.01 K/uL (0.00-0.50); Eosinophils % (auto) 0.1 %; Hematocrit (blood only) 37.2 % (42.0-52.0); Hemoglobin 12.7 g/dl (14.0-18.0); Immature Granulocytes # (auto) 0.08 K/uL (0.01-0.20); Immature Granulocytes % (auto) 0.5 %; Lymphocytes # (auto) 2.13 K/uL (1.20-3.40); Lymphocytes % (auto) 13.9 %; Mean Corpuscular Hgb Conc 34.1 g/dL (32.0-36.0); Mean Corpuscular Volume 96.6 fL (80.0-100.0); Mean Platelet Volume 9.5 fL (9.4-12.4); Monocytes % (auto) 5.2 %; Neutrophils # (auto) 12.27 K/uL (1.40-6.50); Neutrophils % (auto) 80.2 %; Platelet Count 209 K/uL (130-400); RDW Coefficient of Variation 12.6 % (11.5-14.5); RDW Standard Deviation 44.7 fL (36.4-46.3); Red Blood Count 3.85 M/uL (4.70-6.10); White Blood Count 15.31 K/ul (4.8-10.8)
[2022-12-07 21:00] LABS: BUN Creatinine Ratio 21.1 (10-20); Creatinine Clr Calc Pharmacy 68.5 ml/min; Est GFR (African American) 57.6 ml/min; Est GFR (Non-African American) 49.7 ml/min; Potassium 4.6 mmol/L (3.5-5.1)
[2022-12-08 06:35] LABS: Basophils # (auto) 0.03 K/uL (0.00-0.20); Basophils % (auto) 0.2 %; Eosinophils # (auto) 0.13 K/uL (0.00-0.50); Hematocrit (blood only) 35.4 % (42.0-52.0); Immature Granulocytes # (auto) 0.06 K/uL (0.01-0.20); Immature Granulocytes % (auto) 0.5 %; Lymphocytes # (auto) 2.77 K/uL (1.20-3.40); Lymphocytes % (auto) 22.4 %; Mean Corpuscular Hgb Conc 33.9 g/dL (32.0-36.0); Mean Corpuscular Volume 97.3 fL (80.0-100.0); Mean Platelet Volume 8.9 fL (9.4-12.4); Monocytes # (auto) 1.09 K/uL (0.11-0.59); Monocytes % (auto) 8.8 %; Neutrophils # (auto) 8.31 K/uL (1.40-6.50); Neutrophils % (auto) 67.1 %; Platelet Count 180 K/uL (130-400); RDW Coefficient of Variation 12.5 % (11.5-14.5); RDW Standard Deviation 44.6 fL (36.4-46.3); Red Blood Count 3.64 M/uL (4.70-6.10); White Blood Count 12.39 K/ul (4.8-10.8)
[2022-12-08 07:06] LABS: BUN Creatinine Ratio 22.7 (10-20); Calcium 8.9 mg/dl (8.6-10.3); Creatinine Clr Calc Pharmacy 88.5 ml/min; Est GFR (African American) 78.4 ml/min; Est GFR (Non-African American) 67.7 ml/min; Potassium 4.3 mmol/L (3.5-5.1)
[2022-12-08] MEDS: traMADol HCL 50 MG TABLET PO PRN (07:53)
[2022-12-08] MEDS: GABAPENTIN 300 MG CAP PO SCH (07:54)
[2022-12-08] MEDS: dexAMETHasone 6 MG in SYRINGE 0 ML IV SCH (07:54)
[2022-12-08] MEDS: PANTOprazole 40 MG TAB PO SCH (07:55)
[2022-12-08] MEDS: ASPIRIN 81 MG ECTAB PO SCH (07:55)
[2022-12-08] MEDS: ATORVASTATIN 20 MG TAB PO SCH (07:55)
[2022-12-08] MEDS: MULTIVITAMIN TAB PO SCH (07:55)
[2022-12-08] MEDS: lisinopril 20 MG TAB PO SCH (07:56)
--- NOTE | 2022-12-08 08:57 | Discharge Summary ---
Date of Service December 08, 2022 Admission HPI Per Admitting Provider This is a 72-year-old male who presents with chronic persistent back and leg pain after failing course of nonoperative care is here for surgical invention. Principal Diagnosis Lumbar spinal stenosis with radiculopathy Discharge Data Allergies Allergy/AdvReac Type Severity Reaction Status Date / Time shellfish derived Allergy Severe Anaphylaxis Verified 12/05/22 11:37 Consultations 12/05/22 17:52 Consult Hospitalist Routine Procedures Performed Operation Date: 12/05/22 12:35 Actual Procedures p L3-L4 Decompression and Fusion, Spinal Cord Monitoring(Bilateral) - Linden Morales DO Ordered Studies 12/05/22 12:35 [place] lumbar spine 2-3V Routine Hospital Course (1) Neurogenic claudication due to lumbar spinal stenosis: Patient with limited motion patient tolerated this well was negative orthopedic for postoperative. Postop day #1 is up and ambulating. Postop day #2 postop pain 3 drain had decreased probably. Pain well controlled. Extra strength testing. Surgery discharge home. Discharge orders instructions from the chart for further review. Total Time Total Time Spent Total Time Spent (In Minutes): 20 minutes Discharge Plan Discharge Items Patient Disposition: Home - Self-Care Reason For Visit: Spinal Stenosis, Lumbar Region with Neurogenic Cla Discharge Diagnosis: Lumbar spinal stenosis with neurogenic claudication Activity: As commented below Non-emergency contact: Primary Care Provider Call non-emergency contact if: you have any medication questions Follow-up/Referrals: Kwasi Jones PA-C [Primary Care Provider] - Diet: Regular Addtl Attending Provider Instructions: ACTIVITY RECOMMENDATIONS: SELF CARE INSTRUCTIONS AFTER THORACIC/LUMBAR FUSIONS 1. You may walk to your tolerance. It is good exercise for your legs and back. Expect some back and intermittent leg aches and pains. 2. You may perform "counter-top" level activities (make a sandwich, karo with a project, etc.). 3. No bending or lifting of more than 10 pounds or back twisting of any nature (roll like a log when turning in bed). 4. You may ride in a car for 20-30 minutes at a time. No driving until after your first visit with your doctor. 5. Frequent changes of position and restricting sitting to 30 minutes at a time will help limit the amount of back spasms and stiffness you may experience. 6. You may discontinue the use of ambulatory aids (cane, crutches, etc.) once your strength and confidence allow. 7. You may powder coat painter the shower and let water strike your incision when you arrive home at least once daily. Do not take a tub bath, sit in a hot tub or go into a swimming pool until after your first recheck in the office. SPECIAL CARE INSTRUCTIONS: VERY IMPORTANT TO READ AND REVIEW A. Your surgical incision has been closed with a cosmetic suture under the skin that will dissolve in about 6 weeks. In 14 days, you can use a pair of clean scissors and cut the suture that is left outside of the skin at the ends of your incision. 1. The small skin tapes can be removed 7 days after surgery if they have not fallen off by that point. 2. You may keep the wound open to air as much as possible to promote healing after post-op day number 5 unless told otherwise by your doctor. 3. If you think the wound looks like it is becoming infected (redness or worsening drainage) and/or you are experiencing fever, chill or worsening back pain and muscle spasms, contact the office so that we may evaluate you as soon as possible. B. Complications are uncommon, but please contact us if you have any signs or symptoms of: 1. wound infection (fever higher than 102.5 degrees F, redness, separation of wound, drainage, or increasing pain from the incision) 2. blood clots in legs (pain, swelling, redness and warmth in legs) 3. urinary tract infection (fever higher than 102.5 degrees F, burning upon urination or increased frequency of urination) 4. nerve problems (inability to walk on your toes or heels, numbness, loss of bowel or bladder control) 5. any other symptoms that concern you C. Please call the office at if you have any concerns or questions about your operation or recovery. D. No smoking! Smoking drastically decreases the chance of a solid fusion. E. Do not take any anti-inflammatory medications (Indocin, Advil, Motrin, Aspirin, Naprosyn, etc.) as these may inhibit the chance of a solid fusion. Tylenol is okay to take for pain. MANAGING PAIN AFTER SPINAL SURGERY 1. Narcotic medication is intended for short-term use and will be provided for surgical pain. Surgical pain usually lasts for a period of 4-6 weeks. Narcotic medication includes Percocet, Vicodin, Darvocet, Tylenol #3 or Lortab. 2. Longer-term pain is more appropriately treated with non-narcotic medication such as Tylenol ES. 3. Muscle spasm is not appropriately treated with narcotics. Muscle relaxers such as Soma, Flexeril or Skelaxin can be used along with Tylenol ES. 4. Remember that we all live with some "aches and pains". This is not unusual or uncommon after an injury or as we get older. a. Back pain is expected and may include muscle spasms for 4 to 6 weeks after surgery. The pain should gradually improve. If the pain worsens for no apparent reason, please contact the office. b. Intermittent leg pain may also be experienced and should not be concerned about unless it worsens for no apparent reason. If so, please contact the office. 5. We will provide appropriate medication within the normal guidelines of their prescribed use. We will also be very cautious and aware of potential abuse and extended duration of patients' medication needs. a. Pain medications are for your comfort and to assist with sleep and rest so that the tissue can heal. They are not provided in order to return to normal activity and should not be used through the day. To do so or worsening pain at night can result from ongoing tissue damage and development of tolerance to the prescribed medicine. 6. Please allow 2-3 days to process refills. Prescriptions will not be mailed but must be picked up at the office. FOLLOW UP VISIT: Keep your scheduled follow-up appointment. Any questions, please call the office at . Pending Studies at Discharge: No Stand-Alone Forms: My [facility] DATY, Smoking Cessation Medications and DC Order Prescriptions: New tramadol 50 mg tablet 50 mg PO Q6H PRN (Reason: pain, moderate) Qty: 30 0RF oxycodone 5 mg tablet 5 mg PO Q6H PRN (Reason: pain) Qty: 30 0RF Continued multivitamin Tablet 1 tab PO QAM atorvastatin 20 mg Tablet 20 mg PO DAILY lisinopril 20 mg Tablet 20 mg PO QAM meloxicam 7.5 mg Tablet 7.5 mg PO BID pantoprazole 40 mg Tablet,Delayed Release (Dr/Ec) 40 mg PO QAM gabapentin 300 mg Capsule 300 mg PO TID psyllium husk 0.52 gram Capsule 0.52 g PO QAM aspirin 81 mg Capsule 81 mg PO QAM Discharge Orders: Discharge Order (Routine); Ordered 12/08/22 Ordered By: Linden Morales Admission Data Admit Date/Time: 12/05/22 16:08 Attending Provider: Linden Morales Admit Provider: Linden Morales Primary Care Provider: Kwasi Jones Other Providers: Anabelle Stone ; Cherrie Moctezuma
--- NOTE | 2022-12-08 10:18 | Hospitalist Progress Note ---
Date of Service December 08, 2022 Assessment & Plan (1) Neurogenic claudication due to lumbar spinal stenosis: (2) HTN (hypertension): (3) Hyperlipidemia: (4) CLL (chronic lymphocytic leukemia): Plan This is a 72-year-old male who has a significant past medical history of HTN, HLD, CLL, GERD, history of sigmoid colon CA status postresection who presents for elective lumbar procedure by Dr. Morales. Neurogenic claudication due to lumbar spinal stenosis POD#3 Status post L3-L4 lumbar decompression fusion EBL 400 mL Pain/wound management per orthopedics Activity and therapy as per orthopedics Monitor hemoglobin, preop 14.5 Hypertension Chronic, overall stable with one slight elevation in BP this morning. Patient states this happens from time to time related to "white coat HTN" Continue lisinopril per home regimen without changes. Close primary care followup recommended for repeat BP check. Hyperlipidemia Chronic, stable Continue statin CLL History of sigmoid cancer status postresection in 2012 chronic, stable. WBC trending down. Currently undergoing observation Follows with [facility] oncology DVT prophylaxis: SCDs, aspirin Full code Dispo: Per primary, to home today. Medically stable for discharge. PCP: Kwasi Jones Thank you for this consultation. Anabelle Stone, DO [facility] Hospitalist Admission and Anticipated Discharge Date Admission Date: December 05, 2022 Subjective POD #3 s/p lumbar surgery, doing well. Excited about returning home. States he has white coat htn and is excited about going home. States this contributes to his elevated BP in the morning. Intermittent pain, controlled wtih oral medications Denies other issues today and stable for discharge from a medical perspective. Physical Exam Physical Exam: CONSTITUTIONAL: morbid obesity, vitals as above, generally well-appearing, NAD EYES: normal conjunctivae, no scleral icterus ENT: external ear and nose normal, MMM NECK: trachea midline RESPIRATORY: clear to auscultation bilaterally, no crackles, rales or wheezes, normal respiratory effort CARDIOVASCULAR: regular rate and rhythm, S1 and 2 heard without murmurs, gallops or rubs, no JVD, no peripheral edema CHEST: inspection of chest was normal GASTROINTESTINAL: soft, nontender, ND, no guarding MUSCULOSKELETAL: strength 5/5 throughout, ambulating with walker, +CHASIDY drain in posterior back incision which is covered. SKIN: warm and dry NEUROLOGIC: CN 2-12 grossly intact, no sensory deficit, normal cognition, normal speech, no tremor PSYCHIATRIC: alert cooperative and oriented to person, place and time. Euthymic mood, makes good eye contact, language grossly intact, recent and remote memory grossly intact. Results & Data Results & Data Vital Signs (Past 12 Hours) Vital Signs Temp Pulse Pulse Resp BP Pulse Ox O2 Del Method 12/08/22 07:45 36.6 C 72 16 171/79 H 98 Room Air 12/07/22 22:25 36.9 C 72 18 116/72 95 Room Air Laboratory Results Short CBC 12/07/22 12/08/22 Range/Units 19:50 06:08 WBC 15.31 H 12.39 H (4.8-10.8) K/ul Hgb 12.7 L 12.0 L (14.0-18.0) g/dl Hct 37.2 L 35.4 L (42.0-52.0) % Plt Count 209 180 (130-400) K/uL BMP 12/07/22 12/08/22 19:50 06:08 Sodium 135 L 138 Potassium 4.6 4.3 Chloride 106 107 Carbon Dioxide 21 26 BUN 30 H 25 H Creatinine 1.42 H 1.10 D Glucose 169 H 108 H Calcium 9.0 8.9 Medications Administered Current Inpatient Medications Acetaminophen (Acetaminophen 500 Mg Tab) 1,000 mg PO Q8H PRN PRN Reason: MILD Pain Scale 1,2,3 & Pre PT Stop: 01/04/23 17:51 Al Hydrox/Mg Hydrox/Simethicone (Aluminum/Magnesium Susp 30 Ml Udc) 30 ml PO Q6H PRN PRN Reason: Dyspepsia Stop: 01/04/23 17:51 Aspirin (Aspirin 81 Mg Ectab) 81 mg PO QAM [facility] Stop: 01/05/23 08:59 Last Admin: 12/08/22 07:55 Dose: 81 mg Atorvastatin Calcium (Atorvastatin 20 Mg Tab) 20 mg PO DAILY [facility] Stop: 01/05/23 08:59 Last Admin: 12/08/22 07:55 Dose: 20 mg Bisacodyl (Bisacodyl 10 Mg Supp) 10 mg RI DAILY PRN PRN Reason: Constipation Stop: 01/04/23 17:51 Diphenhydramine HCl (Diphenhydramine Capsule 25 Mg Cap) 25 mg PO Q6H PRN PRN Reason: Allergic Rhinitis/Insomnia Stop: 01/04/23 17:51 Famotidine (Famotidine 20 Mg Tab) 20 mg PO Q12H PRN PRN Reason: Dyspepsia Stop: 01/04/23 17:51 Gabapentin (Gabapentin 300 Mg Cap) 300 mg PO TID [facility] Stop: 01/04/23 20:59 Last Admin: 12/08/22 07:54 Dose: 300 mg Hydromorphone HCl (Hydromorphone Inj 0.5 Mg/0.5 Ml Syr) 0.5 mg IV Q3H PRN PRN Reason: MODERATE Pain (Scale 4,5,6) & Pre PT Stop: 12/19/22 17:51 Hydromorphone HCl (Hydromorphone Inj 1 Mg/Ml Syringe) 1 mg IV Q3H PRN PRN Reason: SEVERE Pain (Scale 7,8,9,10) Stop: 12/19/22 17:51 Last Admin: 12/05/22 18:15 Dose: 1 mg Hydroxyzine HCl (Hydroxyzine Hcl 25 Mg Tab) 25 mg PO Q8H PRN PRN Reason: Anxiety Stop: 01/04/23 17:51 Promethazine HCl 12.5 mg/ (Sodium Chloride) 50.5 mls @ 202 mls/hr IV Q6H PRN PRN Reason: Nausea &/or Vomiting Stop: 01/04/23 17:51 Last Infusion: 12/05/22 19:39 Dose: Infused Influenza Virus Vaccine Quadrival (Do Not Administer Flu Vaccine) 1 each N/A PRN PRN PRN Reason: Notification Stop: 01/04/23 17:51 Lisinopril (Lisinopril 20 Mg Tab) 20 mg PO QAM [facility] Stop: 01/05/23 08:59 Last Admin: 12/08/22 07:56 Dose: 20 mg Lorazepam (Lorazepam 0.5 Mg Tab) 0.5 mg PO Q8H PRN PRN Reason: Sedation/Anxiety Stop: 01/04/23 17:51 Lorazepam (Lorazepam 2 Mg/1 Ml Vial) 0.5 mg IV Q8H PRN PRN Reason: Sedation/Anxiety Stop: 01/04/23 17:51 Magnesium Hydroxide (Magnesium Hydroxide Susp 30 Ml Udc) 30 ml PO Q24H PRN PRN Reason: Constipation Stop: 01/04/23 17:51 Metoclopramide HCl (Metoclopramide Hcl Inj 5 Mg/Ml 2 Ml Vial) 10 mg IV Q6H PRN PRN Reason: Nausea &/or Vomiting Stop: 01/04/23 17:51 Multivitamins (Multivitamin Tab) 1 tab PO QAM [facility] Stop: 01/05/23 08:59 Last Admin: 12/08/22 07:55 Dose: 1 tab Naloxone HCl (Naloxone Hcl 0.4 Mg/1 Ml Vial/Carp) 0.1 mg IV Q5M PRN PRN Reason: Oversedation/Resp depression Stop: 01/04/23 17:51 Ondansetron HCl (Ondansetron Inj 2 Mg/Ml 2 Ml Vial) 4 mg IV Q6H PRN PRN Reason: Nausea &/or Vomiting Stop: 01/04/23 17:51 Ondansetron HCl (Ondansetron 4 Mg Od Tab) 4 mg PO Q6H PRN PRN Reason: Nausea Stop: 01/04/23 17:51 Last Admin: 12/05/22 18:40 Dose: 4 mg Oxycodone HCl (Oxycodone Hcl Ir 5 Mg Tab (Immediate Release)) 5 - 10 mg PO Q4H PRN PRN Reason: Pain & Pre PT Stop: 12/19/22 17:51 Pantoprazole Sodium (Pantoprazole 40 Mg Tab) 40 mg PO QAM [facility] Stop: 01/05/23 08:59 Last Admin: 12/08/22 07:55 Dose: 40 mg Pneumococcal Polyvalent Vaccine (Do Not Administer Pneumococcal Vaccine) 1 each N/A PRN PRN PRN Reason: Notification Stop: 01/04/23 17:51 Senna/Docusate Sodium (Docusate Sodium/Senna 50/8.6mg Tab) 2 tab PO HS [facility] Stop: 01/04/23 20:59 Last Admin: 12/07/22 19:41 Dose: Not Given Sodium Biphosphate/Sodium Phosphate (Sod Phosphate/Sod Biphosphate Enema 132 Ml Btl) 132 ml RI ONE PRN PRN Reason: Constipation Stop: 01/04/23 17:51 Tramadol HCl (Tramadol Hcl 50 Mg Tablet) 50 - 100 mg PO Q4H PRN PRN Reason: Moderate-Severe pain & Pre PT Stop: 01/04/23 17:51 Last Admin: 12/08/22 07:53 Dose: 50 mg
== END 2022-12-08 11:12 | disposition home or self-care (01) | DRG 454 ==
LOC: ASU 10:50 → 3E 16:08